=== PATIENT | male | born 1945 | race Caucasian/White ===

== ENCOUNTER 2018-01-19 14:04 | Observation (INO) ==
--- NOTE | 2018-01-19 14:29 | ED ---
HPI General Chief Complaint: Psychiatric Symptoms Stated Complaint: Psych Eval/OBPD Time Seen by Provider: 01/19/18 14:24 Source: patient Mode of arrival: EMS Limitations: no limitations History of Present Illness HPI Narrative: 72-year-old male presents to the emergency department for evaluation as a Mejia Act via EVAC. According to the Mejia act, patient was observed completely naked in front of his home disoriented and shouting obscenities. Upon evaluation, patient is rather reluctant to answer my questions directly but does answer all questions correctly. He denies chronic medical issues although he is noted to have a device implanted in his left anterior chest (PM vs ICD?). Patient is rather cantankerous and is difficult to illicit a history. Related Data Home Medications Medication Instructions Recorded Confirmed Unable to Obtain Home Meds 01/19/18 01/19/18 Allergies Allergy/AdvReac Type Severity Reaction Status Date / Time No Known Allergies Uncoded 07/07/09 18:57 Review of Systems ROS: all other systems reviewed are negative [facility] Medical History Medical History Medical history unknown (Acute) Social History Social History Substance History: No History of Abuse Second Hand Smoke Exposure: No Smoking Status: Current some day smoker Tobacco Type: Cigarettes How Often Do You Have a Drink Containing Alcohol: 2 to 3 times a week Recent Travel in [place] within the Last 8 Weeks: No Recent Out of Country Travel within the Last 8 Weeks: No Immunization History Tetanus Immunization: Unsure Hx Influenza Vaccine This Season: Unable to Assess Exam Narrative Exam Narrative: GENERAL: WD, WN in NAD, smells of urine SKIN: Focused skin assessment warm/dry. HEAD: Atraumatic. Normocephalic. EYES: Pupils equal and round. No scleral icterus. No injection or drainage. ENT: No nasal bleeding or discharge. Mucous membranes pink and moist. NECK: Trachea midline. No JVD. CARDIOVASCULAR: Regular rate and rhythm. No murmur appreciated. RESPIRATORY: No accessory muscle use. Clear to auscultation. Breath sounds equal bilaterally. GASTROINTESTINAL: Abdomen soft, non-tender, nondistended. Hepatic and splenic margins not palpable. MUSCULOSKELETAL: No obvious deformities. No clubbing. No cyanosis. No edema. NEUROLOGICAL: Awake and alert. No obvious cranial nerve deficits. Motor grossly within normal limits. Normal speech. PSYCHIATRIC: irritable mood and affect Course Initial Documented Vital Signs Temperature 98.9 F 01/19/18 14:18 Pulse Rate 77 01/19/18 14:18 Respiratory Rate 16 01/19/18 14:18 Blood Pressure 179/80 H 01/19/18 14:18 Pulse Oximetry 100 01/19/18 14:18 Last Documented Vital Signs Temperature 98.2 F 01/20/18 05:22 Pulse Rate 68 01/20/18 09:00 Respiratory Rate 18 01/20/18 09:00 Blood Pressure 139/71 01/20/18 09:00 Pulse Oximetry 96 01/20/18 09:00 Medical Decision Making ANIYA Attestation ANIYA supervised visit: Yes Attestation: I, Dr. Ho, have reviewed the advance practice practitioner's documentation and am in agreement, met with the patient face to face, made the diagnosis, and the medical decision making was done by me. *My assessment and Findings: Dementia vs. delirium vs. psychosis vs. electrolyte abnormality vs. ICH 72yo M was brought in as Mejia Act for being outside his house naked and yelling. Pt is AAOx2 but verbally abusive to staff. Said he just wants to go home. Wont answer many questions. Do not see signs of trauma on him. Unable to obtain good history. Labs reviewed, no leukocytosis. H/H 12.8/36.5. Mild hypokalemia at 3.2. Creatinine mildly elevated at 1.31. Glucose 111. TSH normal. Alcohol negative. Unable to calm patient down verbally so gave 1mg of ativan IM. CT brain showed diffuse atrophy. No evidence of hemorrhage, edema, mass or mass effect. 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 In that note, secondary diagnosis included cardiomyopathy , CHF s/p AICD, HTN, DM, cognitive disorder and personality disorder. Since it was mentioned that he had cognitive and personality disorder, this may be his baseline. Sounded like he had a history of noncompliance. MDM Narrative Medical decision making narrative: 72-year-old male presents to emergency department as a Mejia act for concern of being a harm to himself. Patient does not offer any medical history and would like to leave. During his stay, patient became disruptive to his medical care and others, requiring soft restraints. Pt has a UTI, given Bactrim DS in the ED. I do not believe patient would tolerate an IV and believe that he would remove this promptly. I do not know his baseline however, after reviewing notes from 2009, it appears he has a history of CVA, hypertension, personality disorder with cluster B features, cognitive disorder with possible dementia. According to notes from 2009, patient was very oppositional at that time as well. He refused to answer questions, very similar to today's visit. Because patient has not been to this emergency department in approximately 8 years and he has a significant urinary tract infection considered admission for UTI. I spoke with Dr. Denton who suggested an evaluation by psych, then consider admission. The patient's laboratory tests have been reviewed. Patient has been medically cleared. Patient will continue on Bactrim DS. Patient will be evaluated by the psychiatrist. Patient is given 20 mEq of potassium p.o. Medical Screen Exam Complete: Yes Emergency Medical Condition: Yes Differential Diagnosis Differential Diagnosis: acute psychosis, UTI, personality disorder Lab Data Result diagrams: 01/19/18 14:33 01/19/18 14:33 Lab Results 01/19/18 01/19/18 01/19/18 Range/Units 14:33 14:33 14:33 WBC 8.3 (4.0-11.0) th/mm3 RBC 4.64 (4.50-5.90) mil/mm3 Hgb 12.8 L (13.0-17.0) gm/dL Hct 36.5 L (39.0-51.0) % MCV 78.6 L (80.0-100.0) fL MCH 27.6 (27.0-34.0) pg MCHC 35.1 (32.0-36.0) % RDW 13.7 (11.6-17.2) % Plt Count 220 (150-450) th/mm3 MPV 8.5 (7.0-11.0) fL Neut % (Auto) 72.0 H (16.0-70.0) % Lymph % (Auto) 19.9 (9.0-44.0) % [place] % (Auto) 5.9 (0.0-8.0) % Eos % (Auto) 1.5 (0.0-4.0) % Baso % (Auto) 0.7 (0.0-2.0) % Neut # (Auto) 5.9 (1.8-7.7) th/mm3 Lymph # (Auto) 1.6 (1.0-4.8) th/mm3 [place] # (Auto) 0.5 (0.0-0.9) th/mm3 Eos # (Auto) 0.1 (0.0-0.4) th/mm3 Baso # (Auto) 0.1 (0.0-0.2) th/mm3 WBC Differential . Differential Comment Auto diff final PT (9.8-11.6) sec INR Ratio APTT (24.3-30.1) sec Sodium 143 (136-145) meq/L Potassium 3.2 L (3.5-5.1) meq/L Chloride 104 (98-107) meq/L Carbon Dioxide 31.3 (21.0-32.0) meq/L Anion Gap 8 (5-15) meq/L BUN 12 (7-18) mg/dL Creatinine 1.31 H (0.60-1.30) mg/dL Estimated GFR 53 L (>89) mL/min Random Glucose 111 H (74-106) mg/dL Calcium 8.6 (8.5-10.1) mg/dL Total Bilirubin 0.7 (0.2-1.0) mg/dL AST 8 L (15-37) U/L ALT 12 (12-78) U/L Alkaline Phosphatase 82 (45-117) U/L Ammonia (11-32) mcmol/L Total Creatine Kinase 38 L (39-308) U/L Total Protein 7.4 (6.4-8.2) g/dL Albumin 3.6 (3.4-5.0) g/dL TSH 1.640 (0.358-3.740) uIU/mL Urine Color (Yellw/Straw) Urine Clarity (Clear) Urine pH (5.0-8.5) Ur Specific Emblem (1.002-1.035) Urine Protein (Neg-Trace) mg/dL Urine Glucose (UA) (Negative) mg/dL Urine Ketones (Negative) mg/dL Urine Occult Blood (Negative) Urine Nitrate (Negative) Urine Bilirubin (Negative) Urine Urobilinogen (Less than 2) mg/dL Ur Leukocyte Esterase (Negative) Urine RBC (0-3) /hpf Urine WBC (0-5) /hpf Urine WBC Clumps (None) Urine Bacteria (None) /hpf Urine Mucus (Occasional) /lpf Micro UA Comment Ur Microscopic Review Urine Culture Comments Urine Opiates Screen (Neg) Ur Barbiturates Screen (Neg) Ur Amphetamines Screen (Neg) U Benzodiazepines Scrn (Neg) Urine Cocaine Screen (Neg) U Cannabinoids Screen (Neg) Serum Alcohol Less than 3 (0-5) mg/dL 01/19/18 01/19/18 01/19/18 Range/Units 15:25 15:25 20:25 WBC (4.0-11.0) th/mm3 RBC (4.50-5.90) mil/mm3 Hgb (13.0-17.0) gm/dL Hct (39.0-51.0) % MCV (80.0-100.0) fL MCH (27.0-34.0) pg MCHC (32.0-36.0) % RDW (11.6-17.2) % Plt Count (150-450) th/mm3 MPV (7.0-11.0) fL Neut % (Auto) (16.0-70.0) % Lymph % (Auto) (9.0-44.0) % [place] % (Auto) (0.0-8.0) % Eos % (Auto) (0.0-4.0) % Baso % (Auto) (0.0-2.0) % Neut # (Auto) (1.8-7.7) th/mm3 Lymph # (Auto) (1.0-4.8) th/mm3 [place] # (Auto) (0.0-0.9) th/mm3 Eos # (Auto) (0.0-0.4) th/mm3 Baso # (Auto) (0.0-0.2) th/mm3 WBC Differential Differential Comment PT 10.4 (9.8-11.6) sec INR 1.0 Ratio APTT 26.9 (24.3-30.1) sec Sodium (136-145) meq/L Potassium (3.5-5.1) meq/L Chloride (98-107) meq/L Carbon Dioxide (21.0-32.0) meq/L Anion Gap (5-15) meq/L BUN (7-18) mg/dL Creatinine (0.60-1.30) mg/dL Estimated GFR (>89) mL/min Random Glucose (74-106) mg/dL Calcium (8.5-10.1) mg/dL Total Bilirubin (0.2-1.0) mg/dL AST (15-37) U/L ALT (12-78) U/L Alkaline Phosphatase (45-117) U/L Ammonia (11-32) mcmol/L Total Creatine Kinase (39-308) U/L Total Protein (6.4-8.2) g/dL Albumin (3.4-5.0) g/dL TSH (0.358-3.740) uIU/mL Urine Color Yellow (Yellw/Straw) Urine Clarity Cloudy H (Clear) Urine pH 5.0 (5.0-8.5) Ur Specific Emblem 1.017 (1.002-1.035) Urine Protein 30 H (Neg-Trace) mg/dL Urine Glucose (UA) Negative (Negative) mg/dL Urine Ketones Negative (Negative) mg/dL Urine Occult Blood Small H (Negative) Urine Nitrate Negative (Negative) Urine Bilirubin Negative (Negative) Urine Urobilinogen 2.0 H (Less than 2) mg/dL Ur Leukocyte Esterase Large H (Negative) Urine RBC 6 H (0-3) /hpf Urine WBC (0-5) /hpf Urine WBC Clumps Moderate H (None) Urine Bacteria Moderate H (None) /hpf Urine Mucus Few H (Occasional) /lpf Micro UA Comment Culture indicated Ur Microscopic Review Not Reportable Urine Culture Comments Culture indicated Urine Opiates Screen Neg (Neg) Ur Barbiturates Screen Neg (Neg) Ur Amphetamines Screen Neg (Neg) U Benzodiazepines Scrn Neg (Neg) Urine Cocaine Screen Neg (Neg) U Cannabinoids Screen Neg (Neg) Serum Alcohol (0-5) mg/dL 01/19/18 Range/Units 20:25 WBC (4.0-11.0) th/mm3 RBC (4.50-5.90) mil/mm3 Hgb (13.0-17.0) gm/dL Hct (39.0-51.0) % MCV (80.0-100.0) fL MCH (27.0-34.0) pg MCHC (32.0-36.0) % RDW (11.6-17.2) % Plt Count (150-450) th/mm3 MPV (7.0-11.0) fL Neut % (Auto) (16.0-70.0) % Lymph % (Auto) (9.0-44.0) % [place] % (Auto) (0.0-8.0) % Eos % (Auto) (0.0-4.0) % Baso % (Auto) (0.0-2.0) % Neut # (Auto) (1.8-7.7) th/mm3 Lymph # (Auto) (1.0-4.8) th/mm3 [place] # (Auto) (0.0-0.9) th/mm3 Eos # (Auto) (0.0-0.4) th/mm3 Baso # (Auto) (0.0-0.2) th/mm3 WBC Differential Differential Comment PT (9.8-11.6) sec INR Ratio APTT (24.3-30.1) sec Sodium (136-145) meq/L Potassium (3.5-5.1) meq/L Chloride (98-107) meq/L Carbon Dioxide (21.0-32.0) meq/L Anion Gap (5-15) meq/L BUN (7-18) mg/dL Creatinine (0.60-1.30) mg/dL Estimated GFR (>89) mL/min Random Glucose (74-106) mg/dL Calcium (8.5-10.1) mg/dL Total Bilirubin (0.2-1.0) mg/dL AST (15-37) U/L ALT (12-78) U/L Alkaline Phosphatase (45-117) U/L Ammonia 17 (11-32) mcmol/L Total Creatine Kinase (39-308) U/L Total Protein (6.4-8.2) g/dL Albumin (3.4-5.0) g/dL TSH (0.358-3.740) uIU/mL Urine Color (Yellw/Straw) Urine Clarity (Clear) Urine pH (5.0-8.5) Ur Specific Emblem (1.002-1.035) Urine Protein (Neg-Trace) mg/dL Urine Glucose (UA) (Negative) mg/dL Urine Ketones (Negative) mg/dL Urine Occult Blood (Negative) Urine Nitrate (Negative) Urine Bilirubin (Negative) Urine Urobilinogen (Less than 2) mg/dL Ur Leukocyte Esterase (Negative) Urine RBC (0-3) /hpf Urine WBC (0-5) /hpf Urine WBC Clumps (None) Urine Bacteria (None) /hpf Urine Mucus (Occasional) /lpf Micro UA Comment Ur Microscopic Review Urine Culture Comments Urine Opiates Screen (Neg) Ur Barbiturates Screen (Neg) Ur Amphetamines Screen (Neg) U Benzodiazepines Scrn (Neg) Urine Cocaine Screen (Neg) U Cannabinoids Screen (Neg) Serum Alcohol (0-5) mg/dL Imaging Data Radiologist's impression: Head CT 01/19/18 14:29 CONCLUSION: 1. Diffuse atrophy. No evidence of hemorrhage, edema, mass or mass effect . Discharge Plan Discharge Disposition Patient Disposition: 30 Still Patient Discharge Condition Condition: Stable Discharge Details Diagnosis: Acute UTI, Altered mental status Physicians Team ED Provider: Bere Ho ED Midlevel Provider: Jamal Coburn Primary Care Provider: UNKNOWN, Rxs /Orders / Referrals /Forms Prescriptions: No Action Unable to Obtain Home Meds RF: 0 Status ED Status: Medically Cleared
[2018-01-19 14:59] LABS: Baso # (Auto) 0.1 th/mm3 (0.0-0.2); Baso % (Auto) 0.7 % (0.0-2.0); Eos # (Auto) 0.1 th/mm3 (0.0-0.4); Eos % (Auto) 1.5 % (0.0-4.0); Hematocrit 36.5 % (39.0-51.0); Hemoglobin 12.8 gm/dL (13.0-17.0); Lymph # (Auto) 1.6 th/mm3 (1.0-4.8); Lymph % (Auto) 19.9 % (9.0-44.0); Mean Corpuscular HGB Conc 35.1 % (32.0-36.0); Mean Corpuscular Hemoglobin 27.6 pg (27.0-34.0); Mean Corpuscular Volume 78.6 fL (80.0-100.0); Mean Platelet Volume 8.5 fL (7.0-11.0); Mono # (Auto) 0.5 th/mm3 (0.0-0.9); Mono % (Auto) 5.9 % (0.0-8.0); Neut # (Auto) 5.9 th/mm3 (1.8-7.7); Platelet Count 220 th/mm3 (150-450); Red Blood Count 4.64 mil/mm3 (4.50-5.90); Red Cell Distribution Width 13.7 % (11.6-17.2); White Blood Count 8.3 th/mm3 (4.0-11.0)
[2018-01-19 15:14] LABS: Alanine Aminotransferase 12 U/L (12-78); Albumin 3.6 g/dL (3.4-5.0); Anion Gap 8 meq/L (5-15); Aspartate Aminotransferase 8 U/L (15-37); Blood Urea Nitrogen 12 mg/dL (7-18); Calcium 8.6 mg/dL (8.5-10.1); Carbon Dioxide 31.3 meq/L (21.0-32.0); Chloride 104 meq/L (98-107); Glomerular Filtration Rate 53 mL/min (>89); Glucose,Random 111 mg/dL (74-106); Potassium 3.2 meq/L (3.5-5.1); Sodium 143 meq/L (136-145)
[2018-01-19 15:24] LABS: Alkaline Phosphatase 82 U/L (45-117); Total Protein 7.4 g/dL (6.4-8.2)
--- NOTE | 2018-01-19 15:58 | CT ---
EXAM DATE: 01/19/2018 3:54 PM EDT AGE/SEX: 72 years / Male INDICATIONS: Altered mental status CLINICAL DATA: This is the patient's initial encounter. Patient reports that signs and symptoms have been present for 1 day and indicates a pain score of 0/10. MEDICAL/SURGICAL HISTORY: . unable to obtain . unable to obtain RADIATION DOSE: 37.01 CTDI (mGy) COMPARISON: No prior exams available for comparison. TECHNIQUE: CT of the head without contrast. Using automated exposure control and adjustment of the mA and/or kV according to patient size, radiation dose was kept as low as reasonably achievable to ob tain optimal diagnostic quality images. DICOM format image data is available electronically for revi ew and comparison. FINDINGS: Cerebrum: The ventricles are normal for age. No evidence of midline shift, mass lesion, hemorrhage or acute infarction. No extraaxial fluid collections are seen. Diffuse atrophy. Posterior Fossa: The cerebellum and brainstem are intact. The 4th ventricle is midline. The cerebe llopontine angle is unremarkable. Extracranial: The visualized portion of the orbits is intact. Skull: The calvaria is intact. No evidence of skull fracture. CONCLUSION: 1. Diffuse atrophy. No evidence of hemorrhage, edema, mass or mass effect . Electronically signed by: Juan Manuel Martinez MD 01/19/2018 3:57 PM EDT
[2018-01-19 16:39] LABS: Amphetamine Screen,Urine Neg (Neg); Bacteria,Urine Moderate /hpf; Barbiturate Screen,Urine Neg (Neg); Bilirubin,Urine Negative (Negative); Cannabinoid Screen,Urine Neg (Neg); Clarity,Urine Cloudy (Clear); Cocaine Screen,Urine Neg (Neg); Color,Urine Yellow (Yellw/Straw); Glucose,Urine (UA) Negative (Negative); Leukocyte Esterase,Urine Large (Negative); Mucus,Urine Few /lpf (Occasional); Nitrite,Urine Negative (Negative); Specific Gravity,Urine 1.017 (1.002-1.035)
[2018-01-19 16:43] LABS: Opiate Screen,Urine Neg (Neg)
[2018-01-19 21:06] LABS: Activated Partial Thrombo Time 26.9 sec (24.3-30.1); Prothrombin Time 10.4 sec (9.8-11.6)
[2018-01-20] MEDS ORDERED: Acetaminophen 325 MG Tablet PO PRN (12:20)
--- NOTE | 2018-01-20 12:29 | P.HPIM ---
History of Present Illness Primary Care Physician: UNKNOWN Chief Complaint: altered mental status History of Present Illness: patient is a 72 y/o male with questionable history of CVA who was brought to ER with altered mental status. he's under corona act. according to ER,patient was observed completely naked in front of his home disoriented and shouting obscenities. at the time of my evaluation he looked fairly comfortable with no reported pain, sob, dysuria, chest pain.he said that ' all was the police's fault'. Review of Systems All other systems reviewed negative except as stated in HPI PMFSH - History History Provided By: Patient - Medical History Medical History: Medical History (Last Updated 01/20/18 @ 12:24 by Naif Valle MD) Left upper arm injury (Acute) Medical history unknown - Family History Family History: Family History (Last Updated 01/20/18 @ 12:24 by Naif Valle MD) Other Patient denies medical problems - Tobacco History Second Hand Smoke Exposure: No Tobacco Use In Past 30 Days: No Smoking Status: Current some day smoker Tobacco Type: Cigarettes - Alcohol History How Often Do You Have a Drink Containing Alcohol: 2 to 3 times a week - Substance Use History Substance History: No History of Abuse - Travel History Recent Travel in the [place] Within the Last 8 Weeks: No Recent Travel Out of the Country Within the Last 8 Weeks: No - Immunization History Tetanus Immunization: Unsure Hx Influenza Vaccine This Season: Unable to Assess Medications and Allergies Active Medications: Active Medications Ceftriaxone Sodium 1,000 mg/ (Sodium Chloride) 100 mls @ 200 mls/hr IV.SIG ONCE ONE Stop: 01/20/18 12:23 Last Admin: 01/20/18 12:09 Dose: 200 mls/hr Allergies Allergy/AdvReac Type Severity Reaction Status Date / Time No Known Allergies Uncoded 07/07/09 18:57 Home Medications Medication Instructions Recorded Confirmed Type Unable to Obtain Home Meds 01/19/18 01/19/18 History Exam Vital signs: Vital Signs 01/19/18 14:18 01/19/18 17:00 01/19/18 19:18 Temperature 98.9 F 98.7 F 98.4 F Pulse Rate 77 78 87 Respiratory Rate 16 18 18 Blood Pressure 179/80 H 169/89 H 175/88 H Pulse Oximetry 100 98 98 01/20/18 00:10 01/20/18 05:22 01/20/18 09:00 Temperature 98.4 F 98.2 F Pulse Rate 60 70 68 Respiratory Rate 18 18 18 Blood Pressure 198/89 H 179/117 H 139/71 Pulse Oximetry 99 100 96 Intake & Output 01/19/18 01/20/18 01/20/18 18:59 06:59 18:59 Weight 61.235 kg - Constitutional no acute distress - Routine HEENT Exam Eye: Present: PERRL - Routine Neck Exam Present: full ROM - Routine Respiratory Exam Present: CTA bilaterally - Routine Cardiovascular Exam Present: RRR - Routine Abdominal Exam Present: soft - Routine Extremities Exam Comments: no pedal edema. - Routine Neurological Exam Present: alert (oriented to person and place.) Results - Labs CBC & Chem 7: 01/19/18 14:33 01/19/18 14:33 Labs: Short CBC 01/19/18 Range/Units 14:33 WBC 8.3 (4.0-11.0) th/mm3 Hgb 12.8 L (13.0-17.0) gm/dL Hct 36.5 L (39.0-51.0) % Plt Count 220 (150-450) th/mm3 BMP 01/19/18 14:33 Sodium 143 Potassium 3.2 L Chloride 104 Carbon Dioxide 31.3 BUN 12 Creatinine 1.31 H Calcium 8.6 Cardiac Enzymes 01/19/18 Range/Units 14:33 Total Creatine Kinase 38 L (39-308) U/L Liver Function 01/19/18 Range/Units 14:33 Total Bilirubin 0.7 (0.2-1.0) mg/dL AST 8 L (15-37) U/L ALT 12 (12-78) U/L Alkaline Phosphatase 82 (45-117) U/L Albumin 3.6 (3.4-5.0) g/dL Urine 01/19/18 Range/Units 15:25 Urine Color Yellow (Yellw/Straw) Urine Clarity Cloudy H (Clear) Urine pH 5.0 (5.0-8.5) Ur Specific [place] 1.017 (1.002-1.035) Urine Protein 30 H (Neg-Trace) mg/dL Urine Glucose (UA) Negative (Negative) mg/dL - Imaging Impressions Head CT 01/19/18 14:29 CONCLUSION: 1. Diffuse atrophy. No evidence of hemorrhage, edema, mass or mass effect . Caprini VTE Risk Assessment Caprini VTE Risk Assessment: Moderate/High Risk (score >= 2) Caprini Risk Assessment Model: Point Value = 1 Point Value = 2 Point Value = 3 Point Value = 5 Age 41-60 Minor surgery BMI > 25 kg/m2 Swollen legs Varicose veins or History of unexplained or recurrent spontaneous Oral contraceptives or hormone replacement Sepsis (< 1 month) Serious lung disease, including pneumonia (< 1 month) Abnormal pulmonary function Acute myocardial infarction Congestive heart failure (< 1 month) History of inflammatory bowel disease Medical patient at bed rest Age 61-74 Arthroscopic surgery Major open surgery (> 45 min) Laparoscopic surgery (> 45 min) Malignancy Confined to bed (> 72 hours) Immobilizing plaster cast Central venous access Age >= 75 History of VTE Family history of VTE Factor V Leiden Prothrombin [id number] Lupus anticoagulant Anticardiolipin antibodies Elevated serum homocysteine Heparin-induced thrombocytopenia Other congenital or acquired thrombophilia Stroke (< 1 month) Elective arthroplasty Hip, pelvis, or leg fracture Acute spinal cord injury (< 1 month) Prophylaxis Regimen: Total Risk Factor Score Risk Level Prophylaxis Regimen 0-1 Low Early ambulation 2 Moderate Order ONE of the following: *Sequential Compression Device (SCD) *Heparin 5000 units SQ BID 3-4 Higher Order ONE of the following medications: *Heparin 5000 units SQ TID *Enoxaparin/Lovenox 40 mg SQ daily (WT < 150 kg, CrCl > 30 mL/min) *Enoxaparin/Lovenox 30 mg SQ daily (WT < 150 kg, CrCl > 10-29 mL/min) *Enoxaparin/Lovenox 30 mg SQ BID (WT < 150 kg, CrCl > 30 mL/min) AND/OR *Sequential Compression Device (SCD) 5 or more Highest Order ONE of the following medications: *Heparin 5000 units SQ TID (Preferred with Epidurals) *Enoxaparin/Lovenox 40 mg SQ daily (WT < 150 kg, CrCl > 30 mL/min) *Enoxaparin/Lovenox 30 mg SQ daily (WT < 150 kg, CrCl > 10-29 mL/min) *Enoxaparin/Lovenox 30 mg SQ BID (WT < 150 kg, CrCl > 30 mL/min) AND *Sequential Compression Device (SCD) Assessment and Plan - Plan A/P - acute encephalopathy- possibly due to UTI patient was observed completely naked in front of his home disoriented and shouting -currently under corona act. CT of the head with diffuse atrophy. will continue with IV antibiotic and follow the cultures. will consult psych. -CKD- at his baseline- will monitor. -DVT prophylaxis with subq Lovenox. -consult PT. Discussed Condition With: the patient and ER midlevel.
[2018-01-20] MEDS: Sodium Chlor 0.9% Inj 500 ML IV.CONT SCH ×2 (13:26→21:52)
--- NOTE | 2018-01-20 17:05 | ED ---
HPI - Psych - General Source: patient Mode of arrival: EMS Limitations: altered mental status - History of Present Illness MD complaint: altered mental status Onset (ago): hour(s) Duration: constant - General Chief Complaint: Psychiatric Symptoms Stated Complaint: Psych Eval/OBPD Time Seen by Provider: 01/19/18 14:24 - History of Present Illness HPI Narrative: This is a 72-year-old single, male who presents under a Mejia act to this facility for standing naked and his front yard. He is not previously known to the psychiatric department at this facility. Reviewed electronic medical record, labs, and discussed case with staff. Toxicology screen is negative however, he does have a significant UTI present. Staff reported the patient has had no behavioral issues throughout the night. Evaluation was conducted and D 44. Patient could be heard calling out intermittently "help, get me out of here". Upon entering the room I found him sitting up in bed eating. He is alert and oriented to self and place at least. He denies being suicidal or homicidal as well as experiencing auditory or visual hallucinations. His speech is clear, logical, organized, of normal gael and volume. He claims that he was merely "washing his shirt in the front yard". Due to the significant UTI that is present is difficult to ascertain if this current altered mental status is due to delirium or a new onset of dementia. Per the police, the patient lives alone. He does not appear to be internally stimulated nor is there any evidence of thought blocking. I can elicit no delusional material. Nor does he appear psychotic nor manic. He does appear to be somewhat confused. (Ksenia Vale) - Related Data Home Medications Medication Instructions Recorded Confirmed Unable to Obtain Home Meds 01/19/18 01/19/18 Allergies Allergy/AdvReac Type Severity Reaction Status Date / Time No Known Allergies Uncoded 07/07/09 18:57 Review of Systems All other systems reviewed negative except as stated in HPI PMFSH - History History Provided By: Patient - Medical History Medical History: Medical History (Last Reviewed 01/20/18 @ 17:10 by AZIZA Campbell) Left upper arm injury (Acute) Medical history unknown - Family History Family History: Family History (Last Updated 01/20/18 @ 12:24 by Naif Valle MD) Other Patient denies medical problems - Tobacco History Second Hand Smoke Exposure: No Tobacco Use In Past 30 Days: No Smoking Status: Current some day smoker Tobacco Type: Cigarettes - Alcohol History How Often Do You Have a Drink Containing Alcohol: 2 to 3 times a week - Substance Use History Substance History: No History of Abuse - Travel History Recent Travel in the [place] Within the Last 8 Weeks: No Recent Travel Out of the Country Within the Last 8 Weeks: No - Immunization History Tetanus Immunization: Unsure Hx Influenza Vaccine This Season: Unable to Assess Psychiatric History - Psychiatric History No history of psychiatric treatment at this facility. (Ksenia Vale) Physical Exam - General Limitations: no limitations, altered mental status General appearance: alert, in no apparent distress - Psychiatric Psychiatric exam: Present: normal affect, normal mood Mental Status Examination Appearance: Appropriate, Disheveled Consciousness: Alert Orientation: Person, Place Motor Activity: Other (Sitting on the bed) Speech: Unremarkable Language: Adequate Fund of Knowledge: Inadequate Attention and Concentration: Easily distracted Memory: Impaired Mood: Appropriate, Good Affect: Appropriate, Euthymic Thought Process & Associations: Intact Thought Content: Appropriate Hallucination Type: None Delusion Type: None Suicidal Ideation: No Suicidal Plan: No Suicidal Intention: No Homicidal Ideation: No Homicidal Plan: No Homicidal Intention: No Insight: Fair Judgment: Poor Initial Documented Vital Signs Temperature 98.9 F 01/19/18 14:18 Pulse Rate 77 01/19/18 14:18 Respiratory Rate 16 01/19/18 14:18 Blood Pressure 179/80 H 01/19/18 14:18 Pulse Oximetry 100 01/19/18 14:18 Last Documented Vital Signs Temperature 97.6 F 01/20/18 16:12 Pulse Rate 80 01/20/18 16:12 Respiratory Rate 16 01/20/18 16:12 Blood Pressure 149/93 H 01/20/18 16:12 Pulse Oximetry 95 01/20/18 16:12 MDM - Psych - Diagnosis (1) Acute UTI Status: Acute - Differential Diagnosis Likely: acute psychosis - Lab Data Result diagrams: 01/19/18 14:33 01/19/18 14:33 - [facility] Narrative Medical decision making narrative: Given that this patient has a significant urinary tract infection, I am unable to ascertain at this time if his behavior is due to a delirium or a psychosis. He will be admitted to the medical side for treatment of the urinary tract infection please order consults to complete the Mejia act upon the completion of his medical admission. (Ksenia Vale) - Lab Data Lab Results 01/19/18 01/19/18 01/19/18 Range/Units 14:33 14:33 14:33 WBC 8.3 (4.0-11.0) th/mm3 RBC 4.64 (4.50-5.90) mil/mm3 Hgb 12.8 L (13.0-17.0) gm/dL Hct 36.5 L (39.0-51.0) % MCV 78.6 L (80.0-100.0) fL MCH 27.6 (27.0-34.0) pg MCHC 35.1 (32.0-36.0) % RDW 13.7 (11.6-17.2) % Plt Count 220 (150-450) th/mm3 MPV 8.5 (7.0-11.0) fL Neut % (Auto) 72.0 H (16.0-70.0) % Lymph % (Auto) 19.9 (9.0-44.0) % [place] % (Auto) 5.9 (0.0-8.0) % Eos % (Auto) 1.5 (0.0-4.0) % Baso % (Auto) 0.7 (0.0-2.0) % Neut # (Auto) 5.9 (1.8-7.7) th/mm3 Lymph # (Auto) 1.6 (1.0-4.8) th/mm3 Sevier # (Auto) 0.5 (0.0-0.9) th/mm3 Eos # (Auto) 0.1 (0.0-0.4) th/mm3 Baso # (Auto) 0.1 (0.0-0.2) th/mm3 WBC Differential . Differential Comment Auto diff final PT (9.8-11.6) sec INR Ratio APTT (24.3-30.1) sec Sodium 143 (136-145) meq/L Potassium 3.2 L (3.5-5.1) meq/L Chloride 104 (98-107) meq/L Carbon Dioxide 31.3 (21.0-32.0) meq/L Anion Gap 8 (5-15) meq/L BUN 12 (7-18) mg/dL Creatinine 1.31 H (0.60-1.30) mg/dL Estimated GFR 53 L (>89) mL/min Random Glucose 111 H (74-106) mg/dL Calcium 8.6 (8.5-10.1) mg/dL Total Bilirubin 0.7 (0.2-1.0) mg/dL AST 8 L (15-37) U/L ALT 12 (12-78) U/L Alkaline Phosphatase 82 (45-117) U/L Ammonia (11-32) mcmol/L Total Creatine Kinase 38 L (39-308) U/L Total Protein 7.4 (6.4-8.2) g/dL Albumin 3.6 (3.4-5.0) g/dL TSH 1.640 (0.358-3.740) uIU/mL Urine Color (Yellw/Straw) Urine Clarity (Clear) Urine pH (5.0-8.5) Ur Specific [place] (1.002-1.035) Urine Protein (Neg-Trace) mg/dL Urine Glucose (UA) (Negative) mg/dL Urine Ketones (Negative) mg/dL Urine Occult Blood (Negative) Urine Nitrate (Negative) Urine Bilirubin (Negative) Urine Urobilinogen (Less than 2) mg/dL Ur Leukocyte Esterase (Negative) Urine RBC (0-3) /hpf Urine WBC (0-5) /hpf Urine WBC Clumps (None) Urine Bacteria (None) /hpf Urine Mucus (Occasional) /lpf Micro UA Comment Ur Microscopic Review Urine Culture Comments Urine Opiates Screen (Neg) Ur Barbiturates Screen (Neg) Ur Amphetamines Screen (Neg) U Benzodiazepines Scrn (Neg) Urine Cocaine Screen (Neg) U Cannabinoids Screen (Neg) Serum Alcohol Less than 3 (0-5) mg/dL 01/19/18 01/19/18 01/19/18 Range/Units 15:25 15:25 20:25 WBC (4.0-11.0) th/mm3 RBC (4.50-5.90) mil/mm3 Hgb (13.0-17.0) gm/dL Hct (39.0-51.0) % MCV (80.0-100.0) fL MCH (27.0-34.0) pg MCHC (32.0-36.0) % RDW (11.6-17.2) % Plt Count (150-450) th/mm3 MPV (7.0-11.0) fL Neut % (Auto) (16.0-70.0) % Lymph % (Auto) (9.0-44.0) % Sevier % (Auto) (0.0-8.0) % Eos % (Auto) (0.0-4.0) % Baso % (Auto) (0.0-2.0) % Neut # (Auto) (1.8-7.7) th/mm3 Lymph # (Auto) (1.0-4.8) th/mm3 Sevier # (Auto) (0.0-0.9) th/mm3 Eos # (Auto) (0.0-0.4) th/mm3 Baso # (Auto) (0.0-0.2) th/mm3 WBC Differential Differential Comment PT 10.4 (9.8-11.6) sec INR 1.0 Ratio APTT 26.9 (24.3-30.1) sec Sodium (136-145) meq/L Potassium (3.5-5.1) meq/L Chloride (98-107) meq/L Carbon Dioxide (21.0-32.0) meq/L Anion Gap (5-15) meq/L BUN (7-18) mg/dL Creatinine (0.60-1.30) mg/dL Estimated GFR (>89) mL/min Random Glucose (74-106) mg/dL Calcium (8.5-10.1) mg/dL Total Bilirubin (0.2-1.0) mg/dL AST (15-37) U/L ALT (12-78) U/L Alkaline Phosphatase (45-117) U/L Ammonia (11-32) mcmol/L Total Creatine Kinase (39-308) U/L Total Protein (6.4-8.2) g/dL Albumin (3.4-5.0) g/dL TSH (0.358-3.740) uIU/mL Urine Color Yellow (Yellw/Straw) Urine Clarity Cloudy H (Clear) Urine pH 5.0 (5.0-8.5) Ur Specific [place] 1.017 (1.002-1.035) Urine Protein 30 H (Neg-Trace) mg/dL Urine Glucose (UA) Negative (Negative) mg/dL Urine Ketones Negative (Negative) mg/dL Urine Occult Blood Small H (Negative) Urine Nitrate Negative (Negative) Urine Bilirubin Negative (Negative) Urine Urobilinogen 2.0 H (Less than 2) mg/dL Ur Leukocyte Esterase Large H (Negative) Urine RBC 6 H (0-3) /hpf Urine WBC (0-5) /hpf Urine WBC Clumps Moderate H (None) Urine Bacteria Moderate H (None) /hpf Urine Mucus Few H (Occasional) /lpf Micro UA Comment Culture indicated Ur Microscopic Review Not Reportable Urine Culture Comments Culture indicated Urine Opiates Screen Neg (Neg) Ur Barbiturates Screen Neg (Neg) Ur Amphetamines Screen Neg (Neg) U Benzodiazepines Scrn Neg (Neg) Urine Cocaine Screen Neg (Neg) U Cannabinoids Screen Neg (Neg) Serum Alcohol (0-5) mg/dL 01/19/18 Range/Units 20:25 WBC (4.0-11.0) th/mm3 RBC (4.50-5.90) mil/mm3 Hgb (13.0-17.0) gm/dL Hct (39.0-51.0) % MCV (80.0-100.0) fL MCH (27.0-34.0) pg MCHC (32.0-36.0) % RDW (11.6-17.2) % Plt Count (150-450) th/mm3 MPV (7.0-11.0) fL Neut % (Auto) (16.0-70.0) % Lymph % (Auto) (9.0-44.0) % Sevier % (Auto) (0.0-8.0) % Eos % (Auto) (0.0-4.0) % Baso % (Auto) (0.0-2.0) % Neut # (Auto) (1.8-7.7) th/mm3 Lymph # (Auto) (1.0-4.8) th/mm3 [place] # (Auto) (0.0-0.9) th/mm3 Eos # (Auto) (0.0-0.4) th/mm3 Baso # (Auto) (0.0-0.2) th/mm3 WBC Differential Differential Comment PT (9.8-11.6) sec INR Ratio APTT (24.3-30.1) sec Sodium (136-145) meq/L Potassium (3.5-5.1) meq/L Chloride (98-107) meq/L Carbon Dioxide (21.0-32.0) meq/L Anion Gap (5-15) meq/L BUN (7-18) mg/dL Creatinine (0.60-1.30) mg/dL Estimated GFR (>89) mL/min Random Glucose (74-106) mg/dL Calcium (8.5-10.1) mg/dL Total Bilirubin (0.2-1.0) mg/dL AST (15-37) U/L ALT (12-78) U/L Alkaline Phosphatase (45-117) U/L Ammonia 17 (11-32) mcmol/L Total Creatine Kinase (39-308) U/L Total Protein (6.4-8.2) g/dL Albumin (3.4-5.0) g/dL TSH (0.358-3.740) uIU/mL Urine Color (Yellw/Straw) Urine Clarity (Clear) Urine pH (5.0-8.5) Ur Specific [place] (1.002-1.035) Urine Protein (Neg-Trace) mg/dL Urine Glucose (UA) (Negative) mg/dL Urine Ketones (Negative) mg/dL Urine Occult Blood (Negative) Urine Nitrate (Negative) Urine Bilirubin (Negative) Urine Urobilinogen (Less than 2) mg/dL Ur Leukocyte Esterase (Negative) Urine RBC (0-3) /hpf Urine WBC (0-5) /hpf Urine WBC Clumps (None) Urine Bacteria (None) /hpf Urine Mucus (Occasional) /lpf Micro UA Comment Ur Microscopic Review Urine Culture Comments Urine Opiates Screen (Neg) Ur Barbiturates Screen (Neg) Ur Amphetamines Screen (Neg) U Benzodiazepines Scrn (Neg) Urine Cocaine Screen (Neg) U Cannabinoids Screen (Neg) Serum Alcohol (0-5) mg/dL
[2018-01-20 23:40] VITALS: O2SAT 97
[2018-01-21 05:00] VITALS: BP 121/73; PULSE 72; RESP 21; TEMP 97.9
[2018-01-21 07:54] LABS: Calcium 8.8 mg/dL (8.5-10.1); Carbon Dioxide 25.6 meq/L (21.0-32.0); Potassium 3.7 meq/L (3.5-5.1)
[2018-01-21] MEDS ORDERED: Enoxaparin Inj 40 MG/0.4 ML Syringe SQ SCH (09:00)
--- NOTE | 2018-01-21 13:51 | P.CONPSY ---
Provisional Diagnosis Admission Date: January 20, 2018 12:08 [place] [facility].: Dementia without behavioral disturbances, delirium due to UTI History of Present Illness Service: ER Primary Care Provider: UNKNOWN Chief Complaint: altered mental status History of Present Illness: The patient is a 72-year-old man, domiciled with granddaughter in [place], , who denies previous psychiatric history, previous psychiatric hospitalizations, previous suicidal attempts, he also denies the use of illegal drugs and alcohol, with a medical history hypertension, CVA, CKD , DVT, who presents under a Mejia act to this facility for standing naked and his front yard. He is not previously known to the psychiatric department at this facility. I have review the electronic chart, his toxicology is negative, BAL is negative, his labs are remarkable for UTI and also acute renal failure, CT scan shows diffuse atrophy. My psychiatric evaluation I find a patient that is calm, cooperative, even though to be loud. He reports feeling better he states that he does want to go back home. The patient is fully oriented 3. He reports good mood. Denies symptomatology of depression, denies anhedonia, denies hopelessness, denies helplessness, denies suicidal and homicidal ideation , denies visual and auditory hallucinations. The patient does not remember the reason he is in the hospital. He denies the use of illegal drugs or alcohol. [facility] - History History Provided By: Patient - Medical History Medical History: Medical History (Last Reviewed 01/21/18 @ 08:56 by Darlin Fields) Left upper arm injury (Acute) Medical history unknown - Family History Family History: Family History (Last Updated 01/20/18 @ 12:24 by Naif Valle MD) Other Patient denies medical problems - Tobacco History Second Hand Smoke Exposure: No Tobacco Use In Past 30 Days: No Smoking Status: Current some day smoker Tobacco Type: Cigarettes - Alcohol History How Often Do You Have a Drink Containing Alcohol: 2 to 3 times a week - Substance Use History Substance History: No History of Abuse - Travel History Recent Travel in the [place] Within the Last 8 Weeks: No Recent Travel Out of the Country Within the Last 8 Weeks: No - Immunization History Tetanus Immunization: Unsure Hx Influenza Vaccine This Season: Unable to Assess Medications and Allergies Active Medications: Active Medications Acetaminophen (Tylenol) 650 mg PO Q4H PRN PRN Reason: fever/pain Enoxaparin Sodium (Lovenox Inj) 40 mg SQ DAILY [facility] Last Admin: 01/21/18 09:30 Dose: Not Given Allergies Allergy/AdvReac Type Severity Reaction Status Date / Time No Known Allergies Uncoded 07/07/09 18:57 Home Medications Medication Instructions Recorded Confirmed Type Unable to Obtain Home Meds 01/19/18 01/19/18 History Exam Vital signs: Vital Signs 01/20/18 13:46 01/20/18 13:55 01/20/18 16:12 Temperature 97.6 F 97.6 F Pulse Rate 78 73 80 Respiratory Rate 18 18 16 Blood Pressure 158/76 H 154/80 H 149/93 H Pulse Oximetry 98 98 95 01/20/18 20:00 01/20/18 23:37 01/21/18 04:00 Temperature 99.1 F 97.4 F L 97.9 F Pulse Rate 80 73 72 Respiratory Rate 19 19 21 Blood Pressure 194/90 H 139/75 121/73 Pulse Oximetry 93 L 97 97 Intake & Output 01/20/18 01/21/18 01/21/18 18:59 06:59 18:59 Intake Total 100 / 100 500 / 500 Balance 100 / 100 500 / 500 Intake: IV 100 / 100 500 / 500 NS Inj 500 ML @ 60 mls/hr IV. 500 / 500 CONT .Q8H20M [facility] Rx#:[id number] Rocephin Inj 1,000 MG In NS Inj 100 / 100 100 ML @ 200 mls/hr IV.SIG ONCE ONE Rx#:[id number] Other: # Voids 3 2 # Urine Diapers 1 Date of Last Bowel Movement 01/22/18 Mental Status Examination Appearance: Appropriate, Disheveled Consciousness: Alert Orientation: Person, Place Motor Activity: Other (Sitting on the bed) Speech: Unremarkable Language: Adequate Fund of Knowledge: Inadequate Attention and Concentration: Easily distracted Memory: Impaired Mood: Appropriate, Good Affect: Appropriate, Euthymic Thought Process & Associations: Intact Thought Content: Appropriate Hallucination Type: None Delusion Type: None Suicidal Ideation: No Suicidal Plan: No Suicidal Intention: No Homicidal Ideation: No Homicidal Plan: No Homicidal Intention: No Insight: Fair Judgment: Poor Assessment and Plan - Plan Plan: Estimated LOS: [] days On my psychiatric evaluation I find a patient that is cooperative, calm, a little bit irritable. The patient denies symptomatology of depression, anxiety , ashly and psychosis. The patient is fully oriented 3 at this moment. No agitation, no aggressive behavior present at this moment. He seems to me that reason bizarre behavior for which the patient was brought to the ER was most probably was secondary to delirium related with UTI and acute renal failure. This patient does not meet criteria for involuntary psychiatric admission. I am not recommending any psychotropic at this moment. Consult appreciated. Justification for Continued Inpatient Stay: No admission is indicated.
--- NOTE | 2018-01-21 14:38 | P.PN ---
Subjective Interval history: Patient is seen lying in bed. His is with him. He reports that he is feeling well with no incidence of dizziness, syncope or weakness. He is concerned about pain and is scheduling an appointment to follow-up with his pain management doctor. No chest pain or shortness of breath. No nausea vomiting or diarrhea. He is tolerating his meals. Physical Exam Vital signs: Vital Signs 01/20/18 16:12 01/20/18 20:00 01/20/18 23:37 Temperature 97.6 F 99.1 F 97.4 F L Pulse Rate 80 80 73 Respiratory Rate 16 19 19 Blood Pressure 149/93 H 194/90 H 139/75 Pulse Oximetry 95 93 L 97 01/21/18 04:00 Temperature 97.9 F Pulse Rate 72 Respiratory Rate 21 Blood Pressure 121/73 Pulse Oximetry 97 Intake & Output 01/20/18 01/21/18 01/21/18 18:59 06:59 18:59 Intake Total 100 / 100 500 / 500 Balance 100 / 100 500 / 500 Intake: IV 100 / 100 500 / 500 NS Inj 500 ML @ 60 mls/hr IV. 500 / 500 CONT .Q8H20M [facility] Rx#:[id number] Rocephin Inj 1,000 MG In NS Inj 100 / 100 100 ML @ 200 mls/hr IV.SIG ONCE ONE Rx#:[id number] Other: # Voids 3 2 # Urine Diapers 1 Date of Last Bowel Movement 01/22/18 Narrative: GENERAL: Well-nourished, well-developed adult male in no obvious distress. SKIN: Warm and dry. Numerous areas of ecchymosis along arms bilaterally. Has sutures in upper back -healing well with no indication of infection. HEAD: Atraumatic. Normocephalic. CARDIOVASCULAR: Regular rate and rhythm. RESPIRATORY: No accessory muscle use. Clear to auscultation. Breath sounds equal bilaterally. GASTROINTESTINAL: Abdomen soft, non-tender, distended. Positive bowel sounds. MUSCULOSKELETAL: Extremities without clubbing, cyanosis, or edema. No obvious deformities. NEUROLOGICAL: Awake and alert. No obvious cranial nerve deficits. Motor grossly within normal limits. Normal speech. PSYCHIATRIC: Appropriate mood and affect; insight and judgment good. Results - Labs CBC & Chem 7: 01/19/18 14:33 01/21/18 04:40 Laboratory Results - last 24 hr 01/21/18 01/21/18 04:40 04:40 Sodium 142 Potassium 3.7 Chloride 108 H Carbon Dioxide 25.6 Anion Gap 8 BUN 24 H Creatinine 1.35 H Estimated GFR 52 L Random Glucose 123 H Calcium 8.8 Vitamin B12 186 L Microbiology 01/19/18 15:25 Clean Catch Urine Urine Culture - Final 50-100,000 cfu/mL mixed gram positive lorena (probable contaminants) Assessment and Plan - Plan A/P - acute encephalopathy -urine clear; symptoms resolved; possible pain medication overdose -patient was observed completely naked in front of his home disoriented and shouting -currently under mejia act -seen and evaluated by psych; Mejia act lifted. - CT of the head with diffuse atrophy. -Stop antibiotics -CKD- at his baseline- will monitor. -DVT prophylaxis with subq Lovenox.
--- NOTE | 2018-01-21 14:47 | P.DS ---
Date of admission: 01/20/18 12:08 Primary care physician: UNKNOWN Attending physician on discharge: Sergei Johnson Anticipated date of discharge: 01/21/18 Brief History from admission: patient is a 72 y/o male with questionable history of CVA who was brought to ER with altered mental status. he's under mejia act. according to ER,patient was observed completely naked in front of his home disoriented and shouting obscenities. at the time of my evaluation he looked fairly comfortable with no reported pain, sob, dysuria, chest pain.he said that ' all was the police's fault'. DS: Diagnosis - Discharge Diagnosis (1) Altered mental status Status: Resolved DS: Summary Hospital Course: Patient is a 72-year-old male who experienced episode of acute altered mental status. Initially brought in under Mejia act; cleared by psychiatry. Urine was negative for UTI. CT of the head showed only diffuse atrophy. AMS resolved by next morning; patient calm and pleasant. A and O x4. AMS most likely due to excessive pain medication-patient has implanted Dilaudid pump. - Time Spent with Patient Total time spent providing and/or coordinating discharge services: Less than 30 minutes - Quality: VTE Deep Vein Thrombosis/Pulmonary Embolism Present on Admission: No Exam Vital signs: Vital Signs 01/20/18 16:12 01/20/18 20:00 01/20/18 23:37 Temperature 97.6 F 99.1 F 97.4 F L Pulse Rate 80 80 73 Respiratory Rate 16 19 19 Blood Pressure 149/93 H 194/90 H 139/75 Pulse Oximetry 95 93 L 97 01/21/18 04:00 Temperature 97.9 F Pulse Rate 72 Respiratory Rate 21 Blood Pressure 121/73 Pulse Oximetry 97 Intake & Output 01/20/18 01/21/18 01/21/18 18:59 06:59 18:59 Intake Total 100 / 100 500 / 500 Balance 100 / 100 500 / 500 Intake: IV 100 / 100 500 / 500 NS Inj 500 ML @ 60 mls/hr IV. 500 / 500 CONT .Q8H20M [facility] Rx#:[id number] Rocephin Inj 1,000 MG In NS Inj 100 / 100 100 ML @ 200 mls/hr IV.SIG ONCE ONE Rx#:[id number] Other: # Voids 3 2 # Urine Diapers 1 Date of Last Bowel Movement 01/22/18 Narrative: GENERAL: Well-nourished, well-developed adult male in no obvious distress. SKIN: Warm and dry. Numerous areas of ecchymosis along arms bilaterally. Has sutures in upper back -healing well with no indication of infection. HEAD: Atraumatic. Normocephalic. CARDIOVASCULAR: Regular rate and rhythm. RESPIRATORY: No accessory muscle use. Clear to auscultation. Breath sounds equal bilaterally. GASTROINTESTINAL: Abdomen soft, non-tender, distended. Positive bowel sounds. MUSCULOSKELETAL: Extremities without clubbing, cyanosis, or edema. No obvious deformities. NEUROLOGICAL: Awake and alert. No obvious cranial nerve deficits. Motor grossly within normal limits. Normal speech. PSYCHIATRIC: Appropriate mood and affect; insight and judgment good. Results Procedures completed during hospitalization: none Labs on day of discharge: Labs from last 24 hours 01/21/18 01/21/18 04:40 04:40 Sodium 142 Potassium 3.7 Chloride 108 H Carbon Dioxide 25.6 Anion Gap 8 BUN 24 H Creatinine 1.35 H Estimated GFR 52 L Random Glucose 123 H Calcium 8.8 Vitamin B12 186 L - Impressions ITS Impressions Head CT 01/19/18 14:29 CONCLUSION: 1. Diffuse atrophy. No evidence of hemorrhage, edema, mass or mass effect . Discharge Plan - Discharge Disposition Patient Disposition: 01 Discharge Home - Discharge Condition Condition: Stable - Discharge Order Discharge Orders: Discharge Order (Routine); Ordered 01/21/18 Ordered By: Noemy Bueno - Physicians Team Primary Care Provider: UNKNOWN, Attending Provider: Sergei Johnson Other Providers: Kushal House MD
--- NOTE | 2018-01-21 15:58 | P.PN ---
Subjective Interval history: Patient is seen lying in bed. He is very irritable and tells me that he wants to go home. He is refusing additional evaluation and says that everything is fine. Denies any chest pain or shortness of breath. Denies any nausea vomiting or diarrhea. No headache, dizziness or syncope. Physical Exam Vital signs: Vital Signs 01/20/18 16:12 01/20/18 20:00 01/20/18 23:37 Temperature 97.6 F 99.1 F 97.4 F L Pulse Rate 80 80 73 Respiratory Rate 16 19 19 Blood Pressure 149/93 H 194/90 H 139/75 Pulse Oximetry 95 93 L 97 01/21/18 04:00 Temperature 97.9 F Pulse Rate 72 Respiratory Rate 21 Blood Pressure 121/73 Pulse Oximetry 97 Intake & Output 01/20/18 01/21/18 01/21/18 18:59 06:59 18:59 Intake Total 100 / 100 500 / 500 Balance 100 / 100 500 / 500 Intake: IV 100 / 100 500 / 500 NS Inj 500 ML @ 60 mls/hr IV. 500 / 500 CONT .Q8H20M [facility] Rx#:[id number] Rocephin Inj 1,000 MG In NS Inj 100 / 100 100 ML @ 200 mls/hr IV.SIG ONCE ONE Rx#:[id number] Other: # Voids 3 2 # Urine Diapers 1 Date of Last Bowel Movement 01/22/18 Narrative: GENERAL: Well-nourished, well-developed adult male in no obvious distress. SKIN: Warm and dry. HEAD: Atraumatic. Normocephalic. CARDIOVASCULAR: Regular rate and rhythm. RESPIRATORY: No accessory muscle use. Clear to auscultation. Breath sounds equal bilaterally. GASTROINTESTINAL: Abdomen soft, non-tender, distended. Positive bowel sounds. MUSCULOSKELETAL: Extremities without clubbing, cyanosis, or edema. No obvious deformities. NEUROLOGICAL: Awake and alert. No obvious cranial nerve deficits. Motor grossly within normal limits. Normal speech. Results - Labs CBC & Chem 7: 01/19/18 14:33 01/21/18 04:40 Laboratory Results - last 24 hr 01/21/18 01/21/18 04:40 04:40 Sodium 142 Potassium 3.7 Chloride 108 H Carbon Dioxide 25.6 Anion Gap 8 BUN 24 H Creatinine 1.35 H Estimated GFR 52 L Random Glucose 123 H Calcium 8.8 Vitamin B12 186 L Microbiology 01/19/18 15:25 Clean Catch Urine Urine Culture - Final 50-100,000 cfu/mL mixed gram positive lorena (probable contaminants) - Procedures none Assessment and Plan - Assessment (1) Altered mental status Code(s): R41.82 - Altered mental status, unspecified Status: Resolved - Plan A/P - acute encephalopathy; resolved -urine clear -patient was observed completely naked in front of his home disoriented and shouting -currently under mejia act -seen and evaluated by psych; Mejia act lifted. - CT of the head with diffuse atrophy. -Stop antibiotics -CKD- at his baseline- will monitor. -DVT prophylaxis with subq Lovenox. (1) Altered mental status Qualifiers: Altered mental status type: unspecified Qualified Code(s): R41.82 - Altered mental status, unspecified
--- NOTE | 2018-01-21 16:02 | P.DS ---
Date of admission: 01/20/18 12:08 Primary care physician: UNKNOWN Anticipated date of discharge: 01/21/18 Brief History from admission: patient is a 72 y/o male with questionable history of CVA who was brought to ER with altered mental status. he's under mejia act. according to ER,patient was observed completely naked in front of his home disoriented and shouting obscenities. at the time of my evaluation he looked fairly comfortable with no reported pain, sob, dysuria, chest pain.he said that ' all was the police's fault'. DS: Diagnosis - Discharge Diagnosis (1) Altered mental status Status: Resolved DS: Summary Hospital Course: Patient is a 72-year-old male who experienced episode of acute altered mental status. Initially brought in under Mejia act; cleared by psychiatry. Urine was negative for UTI. CT of the head showed only diffuse atrophy. AMS resolved by next morning; patient calm and pleasant. A and O x4. Patient refused additional evaluation including MRI. - Time Spent with Patient Total time spent providing and/or coordinating discharge services: Less than 30 minutes - Quality: VTE Deep Vein Thrombosis/Pulmonary Embolism Present on Admission: No Exam Vital signs: Vital Signs 01/20/18 16:12 01/20/18 20:00 01/20/18 23:37 Temperature 97.6 F 99.1 F 97.4 F L Pulse Rate 80 80 73 Respiratory Rate 16 19 19 Blood Pressure 149/93 H 194/90 H 139/75 Pulse Oximetry 95 93 L 97 01/21/18 04:00 Temperature 97.9 F Pulse Rate 72 Respiratory Rate 21 Blood Pressure 121/73 Pulse Oximetry 97 Intake & Output 01/20/18 01/21/18 01/21/18 18:59 06:59 18:59 Intake Total 100 / 100 500 / 500 Balance 100 / 100 500 / 500 Intake: IV 100 / 100 500 / 500 NS Inj 500 ML @ 60 mls/hr IV. 500 / 500 CONT .Q8H20M [facility] Rx#:[id number] Rocephin Inj 1,000 MG In NS Inj 100 / 100 100 ML @ 200 mls/hr IV.SIG ONCE ONE Rx#:[id number] Other: # Voids 3 2 # Urine Diapers 1 Date of Last Bowel Movement 01/22/18 Narrative: GENERAL: Well-nourished, well-developed adult male in no obvious distress. SKIN: Warm and dry. HEAD: Atraumatic. Normocephalic. CARDIOVASCULAR: Regular rate and rhythm. RESPIRATORY: No accessory muscle use. Clear to auscultation. Breath sounds equal bilaterally. GASTROINTESTINAL: Abdomen soft, non-tender, distended. Positive bowel sounds. MUSCULOSKELETAL: Extremities without clubbing, cyanosis, or edema. No obvious deformities. NEUROLOGICAL: Awake and alert. No obvious cranial nerve deficits. Motor grossly within normal limits. Normal speech. Results Procedures completed during hospitalization: none Labs on day of discharge: Labs from last 24 hours 01/21/18 01/21/18 04:40 04:40 Sodium 142 Potassium 3.7 Chloride 108 H Carbon Dioxide 25.6 Anion Gap 8 BUN 24 H Creatinine 1.35 H Estimated GFR 52 L Random Glucose 123 H Calcium 8.8 Vitamin B12 186 L - Impressions ITS Impressions Head CT 01/19/18 14:29 CONCLUSION: 1. Diffuse atrophy. No evidence of hemorrhage, edema, mass or mass effect . Discharge Plan - Discharge Disposition Patient Disposition: 01 Discharge Home - Discharge Condition Condition: Stable - Discharge Order Discharge Orders: Discharge Order (Routine); Ordered 01/21/18 Ordered By: Noemy Bueno - Physicians Team Primary Care Provider: UNKNOWN, Attending Provider: Sergei Johnson Other Providers: Kushal House MD
== END 2018-01-21 18:04 | disposition home or self-care (01) ==
LOC: NEPD 14:04 → NEDA 14:04 → NEPGCP 01-20 13:45
PROVIDERS: ADMIT Hospitalist; ATTEND Hospitalist
DX: N18.9 Chronic kidney disease, unspecified; N17.9 Acute kidney failure, unspecified; F17.210 Nicotine dependence, cigarettes, uncomplicated; N39.0 Urinary tract infection, site not specified; G93.40 Encephalopathy, unspecified